=== PATIENT | male | born 1930 | race Caucasian/White ===

== ENCOUNTER 2019-02-20 15:01 | Outpatient (CLI) | END 2019-02-20 15:02 | disposition home or self-care (01) | LOC: RHC-LAB 15:01 | PROVIDERS: ATTEND Otolaryngology | DX: H60.90 Unspecified otitis externa, unspecified ear (principal); H90.5 Unspecified sensorineural hearing loss | CPT/HCPCS: 87070 ==

== ENCOUNTER 2019-03-12 13:45 | Outpatient (POV) | END 2019-03-12 17:00 | LOC: OUTPT 13:45 | PROVIDERS: ATTEND Otolaryngology | DX: H91.90 Unspecified hearing loss, unspecified ear (principal) | CPT/HCPCS: 92557; 92567 ==